=== PATIENT | female | born 1985 ===

== ENCOUNTER 2021-09-10 13:55 | Emergency (ER) | payer MEDICAID ==
[~2021-09-10] VITALS: Ht 165.1 cm; Wt 59.1 kg
[2021-09-10 14:03] VITALS: BP 142/103
== END 2021-09-10 23:41 | disposition left against medical advice (07) ==
LOC: ER 13:56
DX: K04.7 Periapical abscess without sinus (principal); Z53.21 Procedure and treatment not carried out due to patient leaving prior to being seen by health care provider